=== PATIENT | male | born 1950 | race Caucasian/White ===

== ENCOUNTER 2025-05-11 12:49 | Outpatient (REF) | payer MEDICARE, SELFPAY ==
--- OUTSIDE RECORDS SUMMARY | 2024-09-01 08:41 | XMS_ITS ---
Author Organization [facility] Address [address], [place] [id number] Care Team Providers Care Office Runner Name Role JUAN PABLO Krishna Primary Care Provider [phone] REASON FOR VISIT Covid Encounters Encounter Location Date Provider Diagnosis [address] [address] 09/01/2024 JUAN PABLO CEDENO PLAN OF TREATMENT Next Appt Details Provider Name:JUAN PABLO CEDENO, 0 09/19/2025 09:45:00 AM, [address] [place], [address],
--- OUTSIDE RECORDS SUMMARY | 2024-09-01 10:30 | XMS_ITS ---
Author Organization [facility] Address [address] [place], [place] [id number] Care Team Providers Care Blood Coordinator Name Role Phone JUAN PABLO CEDENO Primary Care Provider [phone] ALLERGIES No Known Allergies REASON FOR VISIT DOXIMITY/ covid positive MEDICATIONS Medication SIG (Take, Route, Frequency, Duration) Notes Start Date End Date Status Valsartan-hydroCHLOR Othiazide 320-25 MG TAKE 1 TABLET BY MOUTH EVERY DAY for 90 Active Cialis 10 MG 1 tablet q48h as needed Orally 04/29/2024 Active B-12 1000 MCG 1/2 tab(s) orally once a day 09/26/2015 Active Atorvastatin Calcium 10 MG TAKE 1/2 TAB ONCE A DAY AT BEDTIME for 90 Active Allopurinol 100 MG TAKE 2 TABLETS BY MOUTH EVERY DAY for 90 Active Vitamin D3 25 MCG (1000 UT) as directed orally once a day Active Anusol-HC 2.5 % 1 application Externally Twice a day for 10 day(s) 03/25/2024 Active Adderall XR 25 MG 1 cap(s) Orally once a day (in the morning) Active Tylenol 8 Hour Arthritis Pain 650 MG 1 tab(s) orally bid prn Active Co Q-10 100 MG 1 cap(s) orally once a day Active Paxlovid (300/100) 20 x 150 MG & 10 x 100MG 3 tablets Orally Twice a day for 5 day(s) gfr > 60; pt to hold atorvastain and tadalfil while on paxlovid Active Folic Acid 800 MCG 1 tablet orally once daily Active LORazepam 0.5 MG 1 tablet at bedtime as needed Orally Once a day Active Theratears Active Encounters Encounter Location Date Provider Diagnosis [facility] [address] [place] [address] 09/01/2024 JUAN PABLO CEDEON COVID-19 U07.1 ASSESSMENTS Encounter Date Diagnosis Assessment Notes Treatment Notes Treatment Clinical Notes Section Notes 09/01/2024 COVID-19 (ICD-10 - U07.1) rest/fluids; pt to isolate self masked, using a separate bathroom, utensil and personal hygiene products in a separate room until improved symptoms and no fever x 24 hours; pt may come out of isolation if symptoms are better and no fever x 24 hours without use of anti-pyretics; pt to mask for total of 10 days from start of symptom; side effects, risks, and benefits of medication reviewed PLAN OF TREATMENT Medication Medication Name Sig Start Date Stop Date Notes Paxlovid (300/100) 20 x 150 MG & 10 x 100MG 3 tablets Orally Twice a day for 5 day(s) gfr > 60; pt to hold atorvastain and tadalfil while on paxlovid Treatment Notes Assessment Notes COVID-19 rest/fluids; pt to i solate self masked, using a separate bathroom, utensil and personal hygiene products in a separate room until improved symptoms and no fever x 24 hours; pt may come out of isolation if symptoms are better and no fever x 24 hours without use of anti-pyretics; pt to mask for total of 10 days from start of symptom; side effects, risks, and benefits of medication reviewed Next Appt Details Follow Up: prn, Reason: Provider Name:JUAN PABLO CEDENO, 0 09/19/2025 09:45:00 AM, [address] [place], [address], History and Physical Notes * HPI (History of Present Illness) Category Sub-Category Detail Notes Category Not es URI nasal congestion Pt tested p ositive for covid today rhinorrhea sore throat cough non-productive headache ears feel blocked fever post nasal drip chills facial pain ear pain sweats hoarseness exposure to similar shortness of breath achiness Physical Examination Category Sub-Category Detail Notes Section Note s HEENT Head: normocephalic, atraumatic EOM: intact NECK ROM: normal Neck: supple NEUROLOGICAL Mental status: Alert and oriented to pers on, place and time GENERAL General Appearance: well nourish ed, no apparent distress, well developed PSYCHOLOGY Grooming: appropriate Eye contact: normal Mood: pleasant Affect appropriate
--- OUTSIDE RECORDS SUMMARY | 2024-09-08 08:40 | XMS_ITS ---
Author Organization [facility] Address [address] [place], [place] [phone] Care Team Providers Care Income Tax Preparer Name Role JUAN PABLO Krishna Primary Care Provider REASON FOR VISIT Rash on face Encounters Encounter Location Date Provider Diagnosis [address] [address] 09/08/2024 JUAN PABLO CEDENO PLAN OF TREATMENT Next Appt Details Provider Name:JUAN PABLO CEDENO, 0 09/19/2025 09:45:00 AM, [address] [place], [address],
--- OUTSIDE RECORDS SUMMARY | 2024-09-08 09:46 | XMS_ITS ---
Author Organization [facility] Address [address] [place], [place] [phone] Care Team Providers Care Cyber Security Administrator Name Role JUAN PABLO Krishna Primary Care Provider REASON FOR VISIT RE:Rash on face Encounters Encounter Location Date Provider Diagnosis [facility] [address] [place] [phone] 09/08/2024 JUAN PABLO CEDENO PLAN OF TREATMENT Next Appt Details Provider Name:JUAN PABLO CEDENO, 0 09/19/2025 09:45:00 AM, [address] [place], [address],
--- OUTSIDE RECORDS SUMMARY | 2025-02-18 04:46 | XMS_ITS ---
Author Organization [facility] Address [address] [place], [place] [id number] Care Team Providers Care Forex Trader Name Role JUAN PABLO Krishna Primary Care Provider REASON FOR VISIT ov Encounters Encounter Location Date Provider Diagnosis [facility] [address] [place] [phone] 02/18/2025 JUAN PABLO CEDENO PLAN OF TREATMENT Next Appt Details Provider Name:JUAN PABLO CEDENO, 0 09/19/2025 09:45:00 AM, [address] [place], [address],
--- OUTSIDE RECORDS SUMMARY | 2025-03-14 12:19 | XMS_ITS ---
Author Organization [facility] Address [address] [place], [place] [phone] Care Team Providers Care Slitter Creaser Slotter Helper Name Role JUAN PABLO Krishna Primary Care Provider REASON FOR VISIT appt made Encounters Encounter Location Date Provider Diagnosis [address] [address] 03/14/2025 JUAN PABLO CEDENO PLAN OF TREATMENT Next Appt Details Provider Name:JUAN PABLO CEDENO, 0 09/19/2025 09:45:00 AM, [address] [place], [address],
--- OUTSIDE RECORDS SUMMARY | 2025-03-18 13:01 | XMS_ITS ---
Author Organization [facility] Address [address] [place], [place] [id number] Care Team Providers Care Patient Financial Advocate Name Role JUAN PABLO Krishna Primary Care Provider [phone] REASON FOR VISIT New Referral Request Encounters Encounter Location Date Provider Diagnosis [address] [address] 03/18/2025 JUAN PABLO CEDENO PLAN OF TREATMENT Next Appt Details Provider Name:JUAN PABLO CEDENO, 0 09/19/2025 09:45:00 AM, [address] [place], [address],
--- OUTSIDE RECORDS SUMMARY | 2025-03-25 07:30 | XMS_ITS ---
Author Organization [facility] Address [address] [place], [place] [id number] Care Team Providers Care Health Information Managers Name Role Phone JUAN PABLO CEDENO Primary Care Provider [phone] ALLERGIES No Known Allergies REASON FOR VISIT 28/ follow up MEDICATIONS Medication SIG (Take, Route, Frequency, Duration) Notes Start Date End Date Status Allopurinol 100 MG TAKE 2 TABLETS BY MO [facility] EVERY DAY for 90 Active Cialis 10 MG 1 tablet q48h as nee ded Orally 04/29/2024 Active Adderall XR 25 MG 1 cap(s) Orally once a day (in the morning) Active B-12 1000 MCG 1/2 tab(s) orally on a day 09/26/2015 Active Anusol-HC 2.5 % 1 application Boring Machine Set Up Operator Jig ally Twice a day for 10 day(s) 03/25/2024 Active Atorvastatin Calcium 10 MG TAKE 1/2 TABL ET BY MOUTH ONCE DAILY AT BEDTIME Active Valsartan-hydroCHLOROthiazi de 320-25 MG TAKE 1 TABLET BY MOUTH EVERY DAY Active Theratears Active LORazepam 0.5 MG 1 tablet at bedtime as needed Orally Once a day Active Co Q-10 100 MG 1 cap(s) orally once a day Active Folic Acid 800 MCG 1 tablet orally once daily Active PROBLEMS Problem Type ICD Code Onset Dates Problem Status W/U Status Risk SNOMED Code Notes Problem Anemia, unspecified type (D64.9) Active confirmed Anemia (365018888) Problem Hemorrhoids, external (K64.4) Active confirmed Hemorrhoids (disorder) (52892138) VITAL SIGNS Height 67.25 in 03/25/2025 Weight 173.4 lbs 03/25/2025 Blood pressure systolic 130 mm Hg 03/25/20 25 Blood pressure diastolic 82 mm Hg 025 BMI 26.95 kg/m2 03/25/2025 Encounters Encounter Location Date Provider Diagnosis [facility] [address] [place] [address] 03/25/2025 JUAN PABLO CEDENO COVID-19 U07.1 ; Essential (primary) hypertension I10 ; Right buttock pain M79.18 ; Irritable bowel syndrome with both constipation and diarrhea K58.2 ; 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 ; ADD (attention deficit disorder) F90.0 ; Gout M10.9 ; Increased prostate specific antigen (PSA) velocity R97.20 ; Impotence N52.9 ; GERD (gastroesophageal reflux disease) K21.9 ; Post-nasal drip R09.82 ; Aortectasia I77.819 ; Elevated cholesterol E78.00 ; Elevation of levels of liver transaminase levels R74.01 ; Vitamin D deficiency E55.9 ; Anemia, unspecified type D64.9 ; Back pain at L4-L5 level M54.50 ; Elevated ferritin level R79.89 and Hemorrhoids, external K64.4 ASSESSMENTS Encounter Date Diagnosis Assessment Notes Treatment Notes Treatment Clinical Notes Section Notes 03/25/2025 COVID-19 (ICD-10 - U07.1) resolved 03/25/2025 Essential (primary) hypertension (ICD-10 - I10) good control < 140/90; low sodium diet reviewed 03/25/2025 Right buttock pain (ICD-10 - M79.18) stable 03/25/2025 Irritable bowel syndrome with both constipation and diarrhea (ICD-10 - K58.2) good control 03/25/2025 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) repeat colonoscopy in 202603/25/2025 ADD (attention deficit disorder) (ICD-10 - F90.0) follow up with Dr Nielson 03/25/2025 Gout (ICD-10 - M10.9) stable 03/25/2025 Increased prostate specific antigen (PSA) velocity (ICD-10 - R97.20) f/u with Dr Woods; alivia/gu exam, psa/ua per Dr Woods 03/25/2025 Impotence (ICD-10 - N52.9) pt is not on testosterone 03/25/2025 GERD (gastroesophageal reflux disease) (ICD-10 - K21.9) good control 03/25/2025 Post-nasal drip (ICD-10 - R09.82) stable 03/25/2025 Aortectasia (ICD-10 - I77.819) f/u with Dr Delaney yearly 03/25/2025 Elevated cholesterol (ICD-10 - E78.00) low fat/cholesterol diet reviewed 03/25/2025 Elevation of levels of liver transaminase levels (ICD-10 - R74.01) recheck LFT 03/25/2025 Vitamin D deficiency (ICD-10 - E55.9) 03/25/2025 Anemia, unspecified type (ICD-10 - D64.9) unclear etiology-normal; consider heme eval 03/25/2025 Back pain at L4-L5 level (ICD-10 - M54.50) pt with known severe spinal stenosis-will update MRI for neurosurgery eval 03/25/2025 Elevated ferritin level (ICD-10 - R79.89) 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 03/25/2025 Hemorrhoids, external (ICD-10 - K64.4) good control; advised high fiber diet 03/25/2025 Other PLAN OF TREATMENT Medication Medication Name Sig Start Date Stop Date Notes Atorvastatin Calcium 10 MG TAKE 1/2 TABL ET BY MOUTH ONCE DAILY AT BEDTIME Valsartan-hydroCHLOROthiazid e 320-25 MG TAKE 1 TABLET BY MOUTH EVERY DAY Treatment Notes Assessment Notes COVID-19 resolved Essential (primary) hypertension good co ntrol < 140/90; low sodium diet reviewed Right buttock pain stable Irritable bowel syndrome wit h both constipation and diarrhea good control Benign neoplasm repeat colonoscopy i n 2026 ADD (attention deficit disorder) follow up with Dr Nisreen Awad stable Increased prostate specific antigen (PSA) velocity f/u with Dr Woods; alivia/gu exam, psa/ua per Dr Woods Impotence pt is not on testost erone GERD (gastroesophageal reflux disease) g ood control Post-nasal drip stable Aortectasia f/u with Dr Delaney y early Elevated cholesterol low fat/cholesterol diet reviewed Elevation of levels of liver transaminase levels recheck LFT Anemia, unspecified type unclear etiolog y-normal; consider heme eval Back pain at L4-L5 level pt with known s evere spinal stenosis-will update MRI for neurosurgery eval Elevated ferritin level 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 Hemorrhoids, external good control; advi sed high fiber diet Next Appt Details Follow Up: 6 Months/FBW, Jennyfer son: Provider Name:JUAN PABLO CEDENO, 0 09/19/2025 09:45:00 AM, [address] [place], [address], History and Physical Notes * HPI (History of Present Illness) Category Sub-Category Detail Notes Category Not es Hypertension Trouble with meds chest pain weakness vision change swelling of legs palpitations dyspnea lightheaded Hypercholesterolemia Trouble with meds Pt is interested in seeing a neurosurgeon in [place] to see fi he can get anything done for his back, but needs MRI. Pt reports chronic back pain with known stenosis Myalgias chest pain dyspnea on exertion shortness of breath Physical Examination Category Sub-Category Detail Notes Section Note s HEENT Head: normocephalic, atraumatic EOM: intact NECK Neck: supple, normal ROM, no lymph adenopathy EXTREMITIES Edema: none Cyanosis: none Pulses: 2+ bilateral Clubbing: none BACK Spine: no tenderness to palpation CVA tenderness: none CHEST Breath sounds: clear to auscultation Rales: none Wheezes: none HEART Rhythm: regular Murmurs: none Heart sounds: normal S1 & S2, no S 3/S4 Rate: regular ABDOMEN Shape: normal, nondistended Guarding: no Tenderness: none Masses: none Liver, Spleen: not enlarged Sounds: normal, active Rebound tenderness: none NEUROLOGICAL Mental status: alert and oriented to pers on, place and time GENERAL General Appearance: well nourish ed, no apparent distress, well developed
--- OUTSIDE RECORDS SUMMARY | 2025-03-28 13:21 | XMS_ITS ---
Author Organization [facility] Address [address] [place], [place] [phone] Care Team Providers Care Sem Manager Name Role Phone JUAN PABLO CEDENO Primary Care Provider REASON FOR VISIT Test results MEDICATIONS Medication SIG (Take, Route, Frequency, Duration) Notes Start Date End Date Status Atorvastatin Calcium 10 MG 1 tab orally qd Active Encounters Encounter Location Date Provider Diagnosis [address] [address] 03/28/2025 JUAN PABLO CEDENO Elevated cholesterol E78.00 ASSESSMENTS Encounter Date Diagnosis Assessment Notes Treatment Notes Treatment Clinical Notes Section Notes 03/28/2025 Elevated cholesterol (ICD-10 - E78.00) PLAN OF TREATMENT Medication Medication Name Sig Start Date Stop Date Notes Atorvastatin Calcium 10 MG 1 tab orally qd Next Appt Details Provider Name:JUAN PABLO CEDENO, 0 09/19/2025 09:45:00 AM, [address] [place] [address], [address],
--- OUTSIDE RECORDS SUMMARY | 2025-04-01 13:20 | XMS_ITS ---
Author Organization [facility] Address [address] [place], [place] [id number] Care Team Providers Care Entry Tech Name Role JUAN PABLO Krishna Primary Care Provider REASON FOR VISIT Test results Encounters Encounter Location Date Provider Diagnosis [address] [address] 04/01/2025 JUAN PABLO CEDENO PLAN OF TREATMENT Next Appt Details Provider Name:JUAN PABLO CEDENO, 0 09/19/2025 09:45:00 AM, [address] [place], [address],
--- NOTE | ~2025-05-11 | XR_ITS ---
CLINICAL HISTORY: M41.56 - Other secondary scoliosis, lumbar region --- Additional Notes or Special Instructions: AP lateral flexion extension 4 views lumbar spine Comparison: None provided Findings: Severe multilevel marginal osteophyte formation and disc space narrowing is present. Significant multilevel facet arthropathy is also noted. Lumbar dextroscoliosis is present. Vertebral body heights are well-maintained. No acute fracture is identified. IMPRESSION: 1. Severe degenerative changes in the lumbar spine with lumbar dextroscoliosis. This document has been electronically signed by: Mono Salguero on 05/13/2025 09:10:22
--- OUTSIDE RECORDS SUMMARY | 2025-05-11 18:41 | XMS_ITS | Patient Health Record ---
Author Organization [facility] Address [address], [place] [id number] Care Team Providers Care Food Counter Attendant Name Role Phone JUAN PABLO CEDENO Primary Care Provider ALLERGIES No Known Allergies REASON FOR REFERRAL No Information MEDICATIONS Medication SIG (Take, Route, Frequency, Duration) Notes Start Date End Date Status Adderall XR 25 MG 1 cap(s) Orally once a day (in the morning) Active B-12 1000 MCG 1/2 tab(s) orally on a day 09/26/2015 Active Anusol-HC 2.5 % 1 application Rail Layer ally Twice a day for 10 day(s) 03/25/2024 Active Allopurinol 100 MG TAKE 2 TABLETS BY MO UTH EVERY DAY for 90 Active Cialis 10 MG 1 tablet q48h as nee ded Orally 04/29/2024 Active Atorvastatin Calcium 10 MG 1 tab orally qd Active Valsartan-hydroCHLOROthiazi de 320-25 MG TAKE 1 TABLET BY MOUTH EVERY DAY Active Theratears Active LORazepam 0.5 MG 1 tablet at bedtime as needed Orally Once a day Active Co Q-10 100 MG 1 cap(s) orally once a day Active Folic Acid 800 MCG 1 tablet orally once daily Active IMMUNIZATIONS Vaccine Route Administration Date Status Comme nts FLU- FLUVIRIN, PRE-FILLED SYRINGE 0.5 ml IM Intramuscular 09/21/2014 Administered Influenza IM Intramuscular 03/30/2015 Administered Influenza, Fluzone HD 65+ IM Intramuscular 05/08/2018 Admi nistered Influenza, Fluzone HD 65+ IM Intramuscular 05/13/2019 Admi nistered Influenza, Fluzone HD 65+ IM Intramuscular 05/15/2020 Admi nistered Influenza, Fluzone Quad.5 ml, IM Intramuscular 06/20/2016 Administered Levaquin IV Intravenous 07/20/2007 Administered Pneumococcal Prevnar 13 IM Intramuscular 05/08/2018 Admini stered Pneumococcal, PPV 23 IM Intramuscular 05/15/2020 Administe red Zostavax (Shingles) SC Subcutaneous 09/21/2014 Administere d SOCIAL HISTORY Tobacco Use: Social History Observation Description Date Details (start date - stop date) Former Smoker NA - NA Sex Assigned At : Social History Observation Description Sex Assigned At Unknown Smoking Question Answer Notes Are you a: former smoker How long has it been since you last smoked? > 10 years Section Notes: quit 1987; h/o 2 ppd x 17 ye ars quit 1987; h/o 2 ppd x 17 ye ars quit 1987; h/o 2 ppd x 17 ye ars quit 1987; h/o 2 ppd x 17 ye ars quit 1987; h/o 2 ppd x 17 ye ars quit 1987; h/o 2 ppd x 17 ye ars quit 1987; h/o 2 ppd x 17 ye ars quit 1987; h/o 2 ppd x 17 ye ars quit 1987; h/o 2 ppd x 17 ye ars quit 1987; h/o 2 ppd x 17 ye ars quit 1987; h/o 2 ppd x 17 ye ars quit 1987; h/o 2 ppd x 17 ye ars quit 1987; h/o 2 ppd x 17 ye ars quit 1987; h/o 2 ppd x 17 ye ars quit 1987; h/o 2 ppd x 17 ye ars quit 1987; h/o 2 ppd x 17 ye ars quit 1987; h/o 2 ppd x 17 ye ars quit 1987; h/o 2 ppd x 17 ye ars quit 1987; h/o 2 ppd x 17 ye ars quit 1987; h/o 2 ppd x 17 ye ars quit 1987; h/o 2 ppd x 17 ye ars quit 1987; h/o 2 ppd x 17 ye ars quit 1987; h/o 2 ppd x 17 ye ars quit 1987; h/o 2 ppd x 17 ye ars quit 1987; h/o 2 ppd x 17 ye ars quit 1987; h/o 2 ppd x 17 ye ars quit 1987; h/o 2 ppd x 17 ye ars quit 1987; h/o 2 ppd x 17 ye ars quit 1987; h/o 2 ppd x 17 ye ars quit 1987; h/o 2 ppd x 17 ye ars PROBLEMS Problem Type ICD Code Onset Dates Problem Status W/U Status Risk SNOMED Code Notes Problem 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) Active confirmed Androgen defici ency (40868724) Problem Attention deficit hyperactivity disorder, 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 Attention defic it hyperactivity disorder, predominantly inattentive type (59738172) Problem HTN [Hypertension] (401.9) Active confirmed Essential hypertension (61595620) Problem Aortectasia (441.9) Active confirmed Ao rtic aneurysm (25948915) Problem GERD [Gastroesophageal reflux disease] (530.81) Active confirmed Gastroesophagea l reflux disease (disorder) (177197283) Problem LBP Low back Pain (724.2) Active confirmed Low back pain (683821101) Problem Subacromial bursitis (726.19) Active confirmed Subacromial bur sitis (96039917) Problem Transaminasemia (790.4) Active confirmed Temporary loss of memory (finding) (467365002) Problem Hypercholesterolemia (272.0) Active confirmed Hypercholestero lemia (38492366) Problem Gout NOS (274.9) Active confirmed Gout (12834864) Problem Impotence (302.72) Active confirmed Ere ctile dysfunction (disorder) (523424258) Problem PRSNL HST COLONIC POLYPS (V12.72) Active confirmed History of p olyp of colon (775469147) Problem Joint pain, hip or thigh (719.45) Active confirmed Arthralgia of the pelvic region and thigh (496814636) Problem Medication monitorin g (V58.69) Active confirmed Medication brian toring (257747280) Problem H/o colon adenoma (211.3) Active confirmed Benign neoplasm of colon (95975640) Problem Vitamin D deficiency (E55.9) Active confirmed 18610489 Problem GERD (gastroesophageal reflux disease) (K21.9) Active confirmed 346663681 Problem Slow transit constipation (K59.01) Active confirmed 70958030 Problem Back pain (M54.9) Active confirmed 1611 5911075 Problem Hypercholesterolemia (E78.0) Active confirmed 17829948 Problem Anemia (D64.9) Active confirmed 4953889 00 Problem Essential (primary) hypertension (I10) Active confirmed 25554568 Problem Weight loss (R63.4) Active confirmed 86 264005 Problem Transaminasemia (R74.0) Active confirmed 768402491 Problem Medication monitorin g encounter (Z51.81) Active confirmed 303754470 Problem Hip pain (M25.559) Active confirmed 492 82865 Problem B12 deficiency (E53.8) Active confirmed 088745491 Problem Gout (M10.9) Active confirmed 28047603 Problem ADD (attention deficit disorder) (F90.0) Active confirmed 500258507 Problem Personal history of colonic polyps (Z86.010) Active confirmed 424981997 Problem Impotence (N52.9) Active confirmed 3978 58847 Problem Aortectasia (I77.819) Active confirmed 57587671 Problem Vitamin D intoxication (E67.3) Active confirmed 60712033 Problem 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) Active confirmed 20358322 Problem Anemia, unspecified type (D64.9) Active confirmed Anemia (417038965) Problem Hemorrhoids, externa l (K64.4) Active confirmed Hemorrhoids (disorder) (78552237) Problem Benign neoplasm (D36.9) Active confirmed 22283691 Problem 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) Active confirmed 39479401 Problem Irritable bowel syndrome with both constipation and diarrhea (K58.2) Active confirmed 01603473 Problem Elevated cholesterol (E78.00) Active confirmed 35307461 Problem Primary osteoarthritis involving multiple joints (M89.49) Active confirmed 947993214 VITAL SIGNS Blood pressure diastolic 82 mm Hg 03/25/2025 Height 67.25 in 03/25/2025 Blood pressure systolic 130 mm Hg 03/25/2025 Weight 173.4 lbs 03/25/2025 BMI 26.95 kg/m2 03/25/2025 Encounters Encounter Location Date Provider Diagnosis [facility] [address] [place] [address] 05/12/2024 JUAN PABLO CEDENO [facility] [address] [place] [address] 05/13/2024 JUAN PABLO CEDENO [facility] [address] [place] [address] 09/01/2024 JUAN PABLO CEDENO [facility] [address] [place] [address] 09/01/2024 JUAN PABLO CEDENO COVID-[address] [address] 09/08/2024 JUAN PABLO PAO [address] [address] 09/08/2024 JUAN PABLO PAO [address] [address] 02/18/2025 JUAN PABLO PAO [address] [address] 03/14/2025 JUAN PABLO CEDENO [address] [address] 03/18/2025 JUAN PABLO PAO [address] [address] 03/25/2025 JUAN PABLO CEDENO COVID-19 U07.1 ; [...] ferritin level R79.89 and Hemorrhoids, external K64.[address] [address] 03/28/2025 JUAN PABLO CEDENO Elevated cholesterol E78.[address] [address] 04/01/2025 JUAN PABLO CEDENO ASSESSMENTS Encounter Date Diagnosis Assessment Notes Treatment [...] effects, risks, and benefits of medication reviewed 03/25/2025 Essential (primary) hypertension (ICD-10 - I10) good control < 140/90; low sodium diet reviewed 03/25/2025 COVID-19 (ICD-10 - U07.1) resolved 03/28/2025 Elevated cholesterol (ICD-10 - E78.00) 03/25/2025 Right buttock pain (ICD-10 - M79.18) [...] fiber diet 03/25/2025 Other PLAN OF TREATMENT Pending Test Test Name Order Date XR: RIGHT HIP & PELVIS 03/14/2021 URIC ACID 02/09/2021 Future Test Test Name Order Date Stool Occult Blood x3 (Screen) (Send Out ) 09/26/2015 URIC ACID 02/09/2019 CREATININE 02/09/2019 LIPID PROFILE 07/17/2021 VITAMIN B12 07/17/2021 PSA 07/17/2021 CBC W/OUT AUTOMATED DIFF 07/17/2021 COMP. METABOLIC 07/17/2021 URINALYSIS WITH REFLEX MICROSCOPIC 07/17 25 [place] Vitamin D 07/17/2021 TSH WITH REFLEX TO FT4 07/17/2021 FOLATE 01/11/2022 FERRITIN 01/11/2022 Urine Microalbumin(Creat/MALB Ratio) Iron and TIBC 01/11/2022 Urine Protein,Total/Creat Ratio 01/12/20 22 LIPID PROFILE 06/04/2022 VITAMIN B12 06/04/2022 FOLATE 06/04/2022 FERRITIN 06/04/2022 PSA 06/04/2022 CBC W/OUT AUTOMATED DIFF 06/04/2022 COMP. METABOLIC 06/04/2022 Urine Microalbumin(Creat/MALB Ratio) Iron and TIBC 06/04/2022 Urine Protein,Total/Creat Ratio 06/04/20 22 25 OH Vitamin D 06/04/2022 TSH WITH REFLEX TO FT4 06/04/2022 Uric Acid 06/04/2022 Urinalysis w/ [employer] 2021 Hemochromatosis genetic panel 07/26/2022 FERRITIN 02/26/2023 FOLIC ACID 02/26/2023 HAPTOGLOBIN 02/26/2023 IMMUNOFIXATION SERUM 02/26/2023 IMMUNOFIXATION URINE RANDOM 02/26/2023 IRON AND TIBC 02/26/2023 KAPPA & LAMBDA LIGHT CHAINS FREE SERUM 0 02/26/2023 RETICULOCYTE COUNT 02/26/2023 VITAMIN B12 02/26/2023 Electrolyte Panel-[id number] 03/26/2024 Next Appt Details Provider Name:JUAN PABLO CEDENO, 0 09/19/2025 09:45:00 AM, [address] [facility], [place], [address], Insurance Providers Payer Name Payer Address Payer Phone Subscriber Number Group Number Insured Name Patient Relationship to Insured Coverage Start Date Coverage End Date [employer] [address] [place] [address] [id number] NISREEN RUFINO Self - patient is the insured MEDICAL (GENERAL) HISTORY Medical History History ICD Code hypertension high cholesetrol ADD-Dr Nielson allergic rhinitis Arthritis Gout low testosterone-ED low back pain from spinal stenosis lyme disease right and left wrist dislocation from tr auma left hip labral tear Colonoscopy - 11/25/2001 - tubular adenoma Colonoscopy - 05/28/2005 - le ft colon adenoma, moderater diffuse diverticulosis Colonoscopy - 07/30/2010 - sig tics EGD 03/26/2013 - [facility] Colonoscopy 11/24/2013 - Div erticulosis in the sigmoid colon & L colon. Path: Tubular adenoma in the L colon Annabel Nisreen () [phone] Colonoscopy 03/31/2018 - Mod erate diverticulosis in the whole colon. Path: Hyperplastic polyp in the L colon Surgical History Surgery Date(Month/Year) right ulnar nerve surgery nose fx surgery for repair many broken bones per pt Polyp removed 10/2023 Hospitalization History Reason Date(Month/Year)
== END 2025-05-11 12:50 | disposition home or self-care (01) ==
LOC: HO.HOSX 12:49
PROVIDERS: Visit Provider Neurological Surgery
DX: M41.56 Other secondary scoliosis, lumbar region (principal)
CPT/HCPCS: 72110; 99202

== ENCOUNTER 2025-05-11 12:49 | Outpatient (AMB) | payer MEDICARE, SELFPAY ==
--- NOTE | 2025-05-11 12:53 | HO.SPINEOV ---
Vital Signs 05/11/25 12:56 Height 5 ft 8 in Weight 170 lb BMI 25.8 Intake Visit Reasons: LBP Intake Note: Mr. Duran is here today c/o numbness of the legs. MRI done @ [facility]. Program Analyst Required: No Allergies No Known Allergies Allergy (Verified 05/11/25 12:57) Physical Exam Vital Signs: BMI result Body Mass Index 25.8 Assessment & Plan Assessment & Plan (1) Scoliosis of lumbar region due to degenerative disease of spine in adult: Code(s): M41.56 - Other secondary scoliosis, lumbar region Category: Medical Plan: Dear colleague On 05/11/2025 I saw Mr. Bharath Duran for 2nd opinion with a chief complaint of low back pain and bilateral leg numbness. HPI: This 74-year-old male has a longstanding history of low back pain. The pain started approximately 25 years ago and significantly increased in intensity about 10 years ago. He developed numbness in his legs without pain. He visited a surgeon and because he was not able to pinpoint where the numbness exactly was he was told that it was not a good surgical candidate. He did Partha therapy which gave him good relief for approximately 4 years. Unfortunately, the therapist retired. He tried the same therapy with the other ones but was not that successful. He also tried multiple epidural steroid injection but the last 1 was no longer successful. The back pain is located across the lumbar spine in his worse in the morning. He takes 2 Advil in the morning and 2 Advil as during the day that controls the pain well. The numbness has progressed and is in his bilateral legs mostly on the outside of his lower legs. He also notices weakness mostly of his right leg, , where it gives out. The symptoms are coming with walking or standing. Sitting down improves the symptoms. Cyclin can also done without any problems. PMH: Hypertension, right ulnar nerve repair Medications: Allopurinol, atorvastatin, valsartan hydrochlorothiazide, Adderall Allergies: NKDA Social history: . Retired. Nonsmoker Physical Exam: Pleasant male. On inspection of the lumbar spine there is a lumbar scoliotic component with the curvature towards the left side in the apex at around L3-L4. There is also a flat back and he stands in a slightly flexed position. There is hypoesthesia over the bilateral lateral part of the lower extremities. Motor exam is 5/5 throughout. No pathological reflexes Radiological Studies: MRI of the lumbar spine done at [facility] on 03/30/2025 was compared to an MRI of 02/13/2021 and shows a lumbar degenerative scoliosis with the apex at L3-4 and L4-5 with associated severe central stenosis at L3-4 and moderate central stenosis at L4-5 and severe L4 and L5 foraminal stenosis on the right side and severe L3 foraminal stenosis on the left side. A standing x-ray of the lumbar spine confirms the rather advanced lumbar degenerative scoliosis with lateral listhesis at L3-4. Impression/Plan: This patient is suffering from back pain and neurogenic claudication due to a lumbar degenerative scoliosis with associated central and foraminal stenosis. The treatment for this would be a minimally invasive correction of the lumbar degenerative scoliosis which would indirectly decompress the nervous structures and relieve his symptoms of neurogenic claudication. The patient has a significant component of low back pain and therefore I would most likely include also the L5-S1 region that shows severe lumbar degenerative disc disease. Currently, the patient's symptoms are well controlled with [id number] medication. He will return to my office if progressive symptoms occur to revisit the possibility of surgery. Thank you for allowing me to participate in your patients care. total time spent was 50 minutes in counseling ,coordination of plan, personal review of imaging, surgical decision making and subsequent plan Ulysses Dejesus MD, PhD Spine Fellowship Trained Neurosurgeon Director, [facility] Orders: Orders XR lumbar spine 4V min Today M41.56 - Other secondary scoliosis, lumbar region Coding Level of Care Code New Pt Level 4 (52490) Diagnoses Scoliosis of lumbar region due to degenerative disease of spine in adult M41.56
[2025-05-11 12:56] VITALS: BMI 25.8
== END 2025-05-11 14:03 | disposition home or self-care (01) ==
LOC: HO.HNS 12:50
PROVIDERS: Visit Provider Neurological Surgery
DX: M54.50 Low back pain, unspecified (principal); M41.56 Other secondary scoliosis, lumbar region
CPT/HCPCS: 99204

== ENCOUNTER → 2025-05-11 13:28 | Outpatient (BNV) | payer MEDICARE, SELFPAY | PROVIDERS: Visit Provider Radiology Vascular & Interventional Radiology | DX: M51.369 Other intervertebral disc degeneration, lumbar region without mention of lumbar back pain or lower extremity pain (principal); M41.56 Other secondary scoliosis, lumbar region | CPT/HCPCS: 72110 ==